=== PATIENT | male | born 2000 | race Caucasian/White ===

== ENCOUNTER 2024-10-02 14:43 | Emergency (ER) | payer BC, SELFPAY ==
[2024-10-02] VITALS (8 sets, daily range): BP systolic 101–153; BP diastolic 81–95; PULSE 85–92; BMI 27.8
[2024-10-02 15:03] LABS: Hematocrit 43.9 % (39.0-52.0); Hemoglobin 15.3 g/dL (13.0-18.0); Mean Corp Hgb Conc. 34.9 g/dL (33.0-37.0); Mean Corpuscular Volume 87.5 fL (80.0-94.0); Nucleated Red Blood Cells % 0 % (-); Platelet Count 228 10^3/uL (130-400); Red Cell Dist. Width 12.3 % (11.5-14.5)
[2024-10-02 15:20] LABS: ALT (SGPT) 43 U/L (0-50); AST (SGOT) 25 U/L (17-59); Albumin 5.1 g/dl (3.5-5.0); Alkaline Phosphatase 51 U/L (38-126); Blood Urea Nitrogen 16 mg/dl (9-20); Calcium 10.0 mg/dl (8.4-10.2); Carbon Dioxide 26 mmol/L (22-30); Chloride 103 mmol/L (98-107); Glucose 93 mg/dl (70-99); Potassium 4.1 mmol/L (3.5-5.1); Sodium 139 mmol/L (135-145); Total Protein 7.5 g/dl (6.3-8.2); eGFR > 60.00
--- NOTE | 2024-10-02 19:35 | ED.GENMED ---
History of Present Illness
General
Chief Complaint: Fatigue
Source: patient
Exam Limitations: none
Time Seen by Provider: 10/02/24 19:11
Nursing documentation reviewed up to this point in time: agreed with
History of Present Illness
History of Present Illness:
24-year-old male with no reported chronic medical issues presents to the emergency room for evaluation of palpitations, lightheadedness and fatigue. Patient reports symptoms started yesterday�he reports that he was sitting [place] in the park
[place] a book when he started to notice heart pounding/palpitations. He decided to walk home and when he got home he laid down for bed and ultimately took a nap on the couch. He says palpitations improved but he was still having positional
lightheadedness and yesterday had headache. Today he woke up and continued to have positional lightheadedness and was very fatigued all day and so he decided to come to the ER for evaluation. Denies any chest pain or shortness of breath. He
denies any abdominal pain or recent GI symptoms. He has not had any URI symptoms or fever/chills. He says he is outside a lot but cannot recall any specific tick bites and has not noticed any rash. He does admit that over the weekend he was at a
wedding and was drinking at the wedding but he believes that he hydrated well and has been eating well. He denies any known cardiac history, only family history is stents in his grandfather.
Review of Systems
Review of Systems
All Other Systems: ROS reviewed and negative except as documented in HPI and ROS
Constitutional: Reports fatigue; Denies fever
EENT: Denies sore throat
Respiratory: Denies cough or trouble breathing
Cardiac: Reports palpitations; Denies chest pain or syncope
ABD/GI: Denies abdominal pain, nausea, vomiting or diarrhea
: Denies flank pain
Musculoskeletal: Denies neck pain or back pain
Skin: Denies rash
Neurological: Reports dizzy and headache
Phy Exam
Physical Exam
Physical Exam:
General: Awake, alert, oriented x3; no acute distress
Head: Normocephalic, atraumatic
Eyes: Conjunctiva normal, pupils equal round and reactive to light bilaterally
Throat: Airway intact, handling secretions
Neck: Trachea midline, supple without meningismus
Lungs: Clear to auscultation bilaterally, no wheezing, rales, rhonchi
Heart: Regular rate and rhythm, no murmurs, gallops, or rubs
Abd: Soft, non distended, nontender
Neuro: Cranial nerves grossly intact, speech fluid, motor and sensory intact
Skin: no rash noted
Extremities: No edema in extremities, equal pulses in all extremities
Scores
Heart Failure Risk
Heart Failure Risk Score: Not Applicable
Heart Score for Chest Pain Patients
STEMI patient?: Not applicable
Withdrawal Assessment of Alcohol
Withdrawal Assessment Completed?: Not applicable
Course
Orders/Labs/Results
Orders:
Orders
10/02/24 14:50
EKG [Electrocardiogram (*1)] Urgent
Reason for Study: Palpitations
EKG- Treatment ONCE
10/02/24 14:53
Complete Blood Count/With Diff Urgent
Comprehensive Metabolic Panel Urgent
10/02/24 19:35
0.9% Sodium Chloride 1000 ml [Nss] 1,000 ml IV BOLUS
10/02/24 19:45
Lyme Progressive Urgent
TSH Reflex To Free T4 Urgent
Abnormal Lab Results
10/02/24
14:53
MPV 10.7 H fL
(7.4-10.4)
Absolute Monos (auto) 0.7 H 10^3/uL
(0.1-0.6)
Albumin 5.1 H g/dl
(3.5-5.0)
10/02/24 14:53
10/02/24 14:53
Vital Signs
Initial and Last Documented VS:
Initial Vital Signs
Temp Pulse Resp BP Pulse Ox
36.9 C 74 16 153/93 98
10/02/24 14:48 10/02/24 14:48 10/02/24 14:48 10/02/24 14:48 10/02/24 14:48
Last Documented Vital Signs
Temp Pulse Resp BP Pulse Ox
36.9 C 73 18 101/88 99
10/02/24 14:48 10/02/24 20:00 10/02/24 18:41 10/02/24 20:00 10/02/24 20:00
MDM/Problems Addressed
Differential Diagnosis Includes:
Arrhythmia, PVCs/PACs, anemia, dehydration, electrolyte derangement, anxiety, Lyme's disease, viral illness, hyperthyroidism
MDM/Problems Addressed:
24-year-old male presents to the ER for evaluation after palpitations yesterday and lightheadedness/fatigue since. Hypertensive in triage normalized by my assessment rest of vitals normal. Physical exam as above. EKG shows sinus rhythm with no
ectopy, no delta wave, no Brug[place], normal QTc. He had lab work sent in triage including a CBC and a CMP which showed no clinically significant abnormalities�notably no anemia or electrolyte derangements and normal renal function. Will plan to
check thyroid studies, Lyme screen. Will provide fluids. Reassess at the above.
Thyroid studies normal. Patient feeling a bit better after fluids. Vital signs normal. At this point low suspicion for emergent pathology suspect likely dehydration. I think he is stable for discharge. Given his significant palpitations
yesterday will refer to cardiology for outpatient follow-up and consideration of Holter monitoring. Patient comfortable with this plan. All questions answered.
*Pulse Oximetry
SaO2: 98
Oxygen Mode of Delivery: Room air
Patient hypoxic: no (98%)
*EKG
Interpreted by ED Provider?: Yes
Heart Rate: 80
Rate: normal
Rhythm: sinus
[place]: normal axis
Interval: normal interval
QRS Pattern: normal QRS
Ischemia: no ischemia
*Critical Care Note
Total Time (30-74mins, 75-104mins- exclusive of procedures): Not Applicable
Data Reviewed
Source: patient
ED Attending Note
-
Portions of this chart may have been created with voice recognition software.� Occasional wrong word or��sound alike� substitutions may have occurred due to the inherent limitations of voice recognition software.
Discharge Plan
Departure
Patient Disposition: Home (Routine Discharge)
Date of Disposition: 10/02/24
Time of Disposition: 20:55
Patient with high blood pressure during this ER visit?: Yes
Discharge Problem:
Palpitations, Lightheadedness
Instructions: Palpitations - ED discharge instructions
Referrals:
Samir He MD [Active, Cardiology] - Call in 1-3 days for appt
Activity Restrictions/Additional Instructions:
Thank you for visiting the Emergency Department at [facility].
1. Please schedule a follow up appointment as directed. Call first thing tomorrow morning to make an appointment.
2. If indicated, please take your medications as instructed and indicated on discharge paperwork.
3. If any of your symptoms do not improve, or persist, or become more severe within 6-12 hours, please return to the emergency department for further care.
4. Please return to the emergency department if you develop a headache, neck pain/stiffness, fever greater than 100.4F, chest pain, shortness of breath, persistent nausea, vomiting, slurred speech, difficulty walking, numbness/tingling, weakness,
signs of infection or any other symptoms that are worrisome to you.
Please call [phone] if you have any questions.
Interventions
Interventions:
*Risk Screen - Suicide Last Done: 10/02/24 14:48
*General Assessment Last Done: 10/02/24 14:48
*Neglect/Abuse Screening Last Done: 10/02/24 14:48
*ED- Fall Risk Assessment Last Done: 10/02/24 14:48
*ED COVID-19 Vaccine History Last Done: 10/02/24 14:48
Discharge Date and Time
Print Language: TURKISH
[2024-10-02] MEDS: NSS 1000 IV (19:48)
[2024-10-03 15:31] LABS: Lyme Antibody Screen, EIA Negative (Negative)
== END 2024-10-02 21:05 | disposition home or self-care (01) ==
LOC: EMR 14:43
PROVIDERS: Student in an Organized Health Care Education/Training Program; EMERGENCY PHYSICIAN Emergency Medicine
DX: R00.2 Palpitations (principal); R42 Dizziness and giddiness
CPT/HCPCS: 96360; 99284; 80053; 84443; 85025; 86618; 93005